=== PATIENT | female | born 1985 | race Caucasian/White ===

== ENCOUNTER 2021-04-30 10:50 | Emergency (ER) | payer OTHER ==
[~2021-04-30] VITALS: Ht 162.6 cm; Wt 63.5 kg
[2021-04-30 11:11] VITALS: BP_SYST 132
[2021-04-30] MEDS ORDERED: AMOX-423 PO ×4 (11:45→11:56)
[2021-04-30] MEDS ORDERED: BACITRACIN 1 GM OINT TP ONE (11:52)
[2021-04-30 12:02] VITALS: BP_SYST 122
== END 2021-04-30 12:02 | disposition home or self-care (01) ==
LOC: SED 10:50 → EDSEX 10:50 → SED 12:02
DX: S61.431A Puncture wound without foreign body of right hand, initial encounter (principal); Z79.899 Other long term (current) drug therapy; W54.0XXA Bitten by dog, initial encounter; Y93.89 Activity, other specified; Y92.89 Other specified places as the place of occurrence of the external cause; Y99.8 Other external cause status
CPT/HCPCS: 99283